=== PATIENT | female | born 1975 | race Caucasian/White ===

== ENCOUNTER 2025-05-01 18:52 | Emergency (ER) | payer OTHER, SELFPAY ==
[2025-05-01 18:54] VITALS: BP 140/84
--- NOTE | 2025-05-01 20:32 | ED.SKININJ ---
HPI-Injury
General
Chief Complaint: Bite
Source: patient
Exam Limitations: none
Time Seen by Provider: 05/01/25 20:08
Nursing documentation reviewed up to this point in time: agreed with
History of Present Illness-Injury
Initial Injury comments:
49-year-old female was at her neighbor's house with her dog, her dog and the neighbors dog started fighting, she put her wrist down to separate them and the neighbors dog bit her right wrist. This occurred around 5 PM. She is unsure of her last
tetanus immunization.
Past History
Past History
ED Past Medical History: Cancer (Melanoma) and Psychiatric (Anxiety, ADHD, depression)
ED Past Surgical History: None
Social History
Tobacco: Non-smoker
Alcohol: Occasional
Personal:
Living: with family
Employment: Employed
Review of Systems
Review of Systems
Allergies reviewed?: Yes
All Other Systems: ROS reviewed and negative except as documented in HPI and ROS
Skin Exam
Bite
Ulnar aspect of right wrist:
Type: animal
Skin has: puncture wounds
Surrounding area around bite has: area of erythema/swelling (Along with local ecchymosis)
Distal skin color and temperature: normal-warm & good color
Normal distal neurovascular exam: Yes
Phy Exam
Physical Exam
Physical Exam:
PHYSICAL EXAMINATION:
General: no apparent distress, not acutely ill
Neuro: alert and oriented.
Psychiatric: well kept. interactive and cooperative
Musculoskeletal: Right wrist with limited range of motion but dorsiflexion and plantarflexion are intact. Distal neurovascular exam is normal, subjective mild tingling in index and middle fingers. The area surrounding the
bite on the ulnar aspect of the wrist is mildly to moderately swollen and mildly ecchymotic, no active bleeding.
Skin: Warm, pink.
Course
Orders/Labs/Results
Orders:
Orders
05/01/25 18:59
Wrist, Right 3 Views [CR Wrist - Right Min 3 Views] Urgent
Comment:
Reason For Exam: DOG BITE TO WRIST, DIFFICULTY MOVING WRIST
05/01/25 20:32
[place] Wrist Right-Tx ONCE
05/01/25 20:33
Tetanus/Diphth/Acelpertussis [Adacel] 0.5 ml IM .ONCE ONE
05/01/25 20:44
Amoxicillin 875 mg/Clav 125 mg [Augmentin 875 mg/125 mg] 1 tablet PO NOW STA
Vital Signs
Initial and Last Documented VS:
Initial Vital Signs
Temp Pulse Resp BP Pulse Ox
97.8 F 86 20 140/84 98
05/01/25 18:54 05/01/25 18:54 05/01/25 18:54 05/01/25 18:54 05/01/25 18:54
Last Documented Vital Signs
Temp Pulse Resp BP Pulse Ox
97.8 F 86 20 140/84 98
05/01/25 18:54 05/01/25 18:54 05/01/25 18:54 05/01/25 18:54 05/01/25 20:33
MDM/Problems Addressed
Differential Diagnosis Includes:
Fracture wrist, foreign body from dog bite
MDM/Problems Addressed:
49-year-old female was at her neighbor's house with her dog, her dog and the neighbors dog started fighting, she put her wrist down to separate them and the neighbors dog bit her right wrist. This occurred around 5 PM. She is unsure of her last
tetanus immunization.
The punctures are not bleeding, a 3 mm puncture/laceration will be left open to heal by secondary intention, this will decrease the chance of infection, there are no gaping wounds
Mild tingling in fingers should resolve as the swelling goes down. The bite is on the most medial aspect of the wrist, no likely tendon damage, dorsi and plantar flexion intact. full range of motion of all fingers
Wound cleansed with antibacterial soap and water, antibiotic ointment and dressing applied. [place] wrist splint applied.
Tdap updated
Started on amoxicillin with clavulanate, prescription for this was sent to her pharmacy.
X-ray of the wrist reveals no bony abnormality, no foreign body.
*Pulse Oximetry
SaO2: 98
Oxygen Mode of Delivery: Room air
Patient hypoxic: not evaluated
*Critical Care Note
Total Time (30-74mins, 75-104mins- exclusive of procedures): Not Applicable
ED Attending Note
-
Portions of this chart may have been created with voice recognition software.� Occasional wrong word or��sound alike� substitutions may have occurred due to the inherent limitations of voice recognition software.
Discharge Plan
Departure
Patient Disposition: Home (Routine Discharge)
Date of Disposition: 05/01/25
Time of Disposition: 20:41
Patient with high blood pressure during this ER visit?: No
Condition: Good
Discharge Problem:
Dog bite of right wrist
Instructions: Animal and human bites, Using Cold for Pain
Prescriptions:
New
amoxicillin-pot clavulanate 875-125 mg tablet
1 tab PO Q12H Qty: 10 0RF
No Action
bupropion HCl [Wellbutrin SR] 150 MG tablet sustained-release 12 hr
300 mg PO DAILY
citalopram [Celexa] 10 MG tablet
10 mg PO DAILY
dextroamphetamine-amphetamine [Adderall XR] 10 MG capsule,extended release 24hr
10 mg PO DAILY
azithromycin 250 MG tablet
250 mg PO DAILY Qty: 4 0RF
promethazine-codeine 5 ML syrup
5 ml PO Q4HPRN PRN (Reason: Cough) Qty: 120 0RF
Rx Instructions:
May take 2 tsp as needed for cough
Referrals:
Deanna Reaves DO [Family Provider, Family Practice] - As needed
Activity Restrictions/Additional Instructions:
As we discussed, Tylenol or ibuprofen as needed for pain. Keeping the hand elevated to the level of your heart or slightly higher may minimize throbbing pains.
Wash the wound twice a day, dry well and apply antibiotic ointment, dressing and use the wrist splint as needed for comfort and support.
I sent a prescription to your pharmacy for Augmentin take it twice a day for the next 5 days.
Seek medical care immediately for signs of infection which may include increasing redness, pain, swelling, pus drainage, red streaks up the arm or fever
Interventions
Interventions:
*Risk Screen - Suicide Last Done: 05/01/25 18:54
*Neglect/Abuse Screening Last Done: 05/01/25 18:54
*Nursing Disposition Last Done: 05/01/25 20:49
ED-Musculoskeletal Assessment Last Done: 05/01/25 20:38
ED-Skin Assessment Last Done: 05/01/25 20:38
Discharge Date and Time
Discharge Date/Time: 05/01/25 20:50
Print Language: MACEDONIAN
[2025-05-01] MEDS: AUGMENTIN 875 MG/125 MG 1 TABLET PO (20:46)
[2025-05-01] MEDS: ADACEL 0.5 ML IM (20:46)
== END 2025-05-01 20:50 | disposition home or self-care (01) ==
LOC: EMR 18:52
PROVIDERS: EMERGENCY PHYSICIAN Emergency Medicine; FAMILY PHYSICIAN Family Medicine
DX: S61.531A Puncture wound without foreign body of right wrist, initial encounter (principal); W54.0XXA Bitten by dog, initial encounter; Z23 Encounter for immunization; Z85.820 Personal history of malignant melanoma of skin
CPT/HCPCS: 99283; 73110; 90471; 90715